=== PATIENT | female | born 1970 | race Hispanic/Latino ===

== ENCOUNTER 2017-04-26 15:22 | Emergency (ER) | payer OTHER ==
[2017-04-26 15:38] VITALS: BP 119/68; PULSE 80; RESP 16; TEMP 98.6; O2SAT 98
[2017-04-26 15:39] VITALS: BMI 24.7
== END 2017-04-26 16:51 | disposition left against medical advice (07) ==
LOC: H.ER 15:22
DX: Z02.89 Encounter for other administrative examinations (principal)

== ENCOUNTER 2017-05-21 08:19 | Emergency (ER) | payer OTHER ==
[2017-05-21 08:19] VITALS: BMI 24.7
[2017-05-21 08:39] VITALS: BP 122/78; PULSE 87; RESP 18; TEMP 98.9; O2SAT 98
[2017-05-21 10:34] LABS: BASO # 0.1 K/uL (0.0-0.2); EOS # 0.2 K/uL (0.0-0.7); EOS % 1.5 % (0.0-4.0); HEMOGLOBIN 15.6 g/dL (12.0-16.0); LYMPH # 3.4 K/uL (1.0-4.3); LYMPH % 26.7 % (20.0-40.0); MEAN CELL VOLUME 90.4 fl (81.0-99.0); MEAN CORPUSCULAR HEMOGLOBIN 30.8 pg (27.0-31.0); MEAN CORPUSCULAR HGB CONC 34.1 g/dL (33.0-37.0); MEAN PLATELET VOLUME 7.9 fl (7.2-11.7); MONO # 0.6 K/uL (0.0-0.8); MONO % 4.8 % (0.0-10.0); NEUT # 8.5 K/uL (1.8-7.0); RBC 5.08 Mil/uL (3.80-5.20); RED CELL DISTRIBUTION WIDTH 13.8 % (11.5-14.5); WHITE BLOOD COUNT 12.8 K/uL (4.8-10.8)
[2017-05-21 10:45] LABS: BLOOD UREA NITROGEN 11 mg/dl (7-17); CALCIUM 9.5 mg/dL (8.4-10.2); GFR AFRICAN-AMERICAN > 60; GFR NON-AFRICAN AMERICAN > 60
--- NOTE | 2017-05-21 10:50 | RAD ---
HISTORY: chest pain COMPARISON: Comparison made with prior chest radiograph 12/29/2016 TECHNIQUE: Chest PA and lateral FINDINGS: LUNGS: No focal consolidation. Scattered peribronchial cuffing changes with slight increased/ coarse interstitial markings; rule out sequela of reactive/inflammatory airway disease. PLEURA: No significant pleural effusion identified. No pneumothorax apparent. CARDIOVASCULAR: Normal. OSSEOUS STRUCTURES: No significant abnormalities. VISUALIZED UPPER ABDOMEN: Normal. OTHER FINDINGS: None. IMPRESSION: No focal consolidation. Scattered peribronchial cuffing changes with slight increased/ coarse interstitial markings; rule out sequela of reactive/inflammatory airway disease.
--- NOTE | 2017-05-21 10:52 | CARD ---
APPROVED REPORT EKG Measurement Heart [id number] ID [id number] <Conclusion> Sinus rhythm with sinus arrhythmia with short ID Nonspecific ST abnormality Abnormal ECG
--- NOTE | 2017-05-21 10:52 | ED PDOC ---
HPI: General Adult Time Seen by Provider: 05/21/17 08:29 Chief Complaint (Nursing): Trauma Chief Complaint (Provider): Left Sided Chest Pain and Left Knee Pain History Per: Patient History/Exam Limitations: no limitations Onset/Duration Of Symptoms: Hrs Have you had recent travel within the past 21 days to any of the following countries: [place], [place], [place] or [place]?: No Additional Complaint(s): Nikki Cox, a 46 year old female, presents to the ED complaining of left sided chest pain and left knee pain which started this morning. The patient states that she tripped over a piece of furniture but denies having pain after the fall. She reports that she cannot remember everything that happened after the fall but said she doesn't think she has a head injury, but she does know that she fell on her left side.The patient states that the pain is constant, radiates up and down her left side and gets worse with walking. Denies headache , vomiting and syncope. Past Medical History Reviewed: Historical Data, Nursing Documentation, Vital Signs Vital Signs: Last Vital Signs Temp 98.9 F 05/21/17 08:39 Pulse 87 05/21/17 08:39 Resp 18 05/21/17 08:39 BP 122/78 05/21/17 08:39 Pulse Ox 98 05/21/17 11:10 - Medical History PMH: Anxiety, COPD, HIV, Rheumatoid Arthritis Denies: Chronic Kidney Disease - Surgical History Surgical History: Other surgeries: Skin graph surgery - Family History Family History: States: Unknown Family Hx - Home Medications Home Medications: Ambulatory Orders Medication Instructions Recorded Albuterol HFA [Ventolin HFA 90 2 puff IH [id number] PRN 03/11/15 mcg/actuation (8 g)] Albuterol HFA [Ventolin HFA 90 2 puff IH [id number] PRN #30 puff 03/11/15 mcg/actuation (8 g)] Azithromycin [Zithromax Z-Marquez] 250 mg PO DAILY #1 tab 03/11/15 Budesonide/Formoterol Fumarate 1 dose INH PRN PRN 03/11/15 [Symbicort] Emtricita/rilpivir/tenofovir 1 tab PO DAILY 03/11/15 [Complera 200 mg-25 mg-300 mg] Levalbuterol Hydrochloride 1 dose XX PRN PRN 03/11/15 [Xopenex] Methylprednisolone [Medrol Dose 4 mg PO DAILY #21 mg 03/11/15 Pack (21 tabs)] Prednisone 3 mg PO DAILY 03/11/15 Clindamycin [Cleocin] 300 mg PO TID #30 cap 10/26/15 Oxycodone HCl/Acetaminophen 1 tab PO Q6 PRN #12 tab 10/26/15 [Percocet 325 mg-5 mg] Acetaminophen with Codeine 1 tab PO Q4 PRN #15 tab 01/26/16 [Acetaminophen and Codeine Phosphate 300 mg-30] Albuterol HFA [Ventolin HFA 90 1 - 2 puff IH Q4 PRN #1 inhaler 01/26/16 mcg/actuation (8 g)] Azithromycin [Zithromax] 250 mg PO DAILY #6 tab 01/26/16 Prednisone 50 mg PO DAILY #4 tab 01/26/16 Emtricita/Rilpivirine/Tenof Df 1 each PO DAILY 05/05/16 [Complera Tablet] Prednisone 50 mg PO DAILY #5 tablet 09/05/16 Ibuprofen [Motrin] 600 mg PO TID 7 Days 12/29/16 Ibuprofen [Motrin] 600 mg PO TID 7 Days 12/29/16 - Allergies Allergies/Adverse Reactions: Allergies Allergy/AdvReac Type Severity Reaction Status Date / Time FISH Allergy SWELLING Verified 05/21/17 08:27 lemon Allergy RASH Verified 05/21/17 08:27 onion Allergy SWELLING Verified 05/21/17 08:27 Review of Systems ROS Statement: Except As Marked, All Systems Reviewed And Found Negative Cardiovascular: Positive for: Chest Pain (Left sided chest pain) Gastrointestinal: Negative for: Vomiting Musculoskeletal: Positive for: Other (Left hip pain) Neurological: Positive for: Other (Denies syncope). Negative for: Headache Physical Exam - Reviewed Nursing Documentation Reviewed: Yes Vital Signs Reviewed: Yes - Physical Exam Appears: Positive for: Non-toxic, No Acute Distress Head Exam: Positive for: ATRAUMATIC, NORMAL INSPECTION, NORMOCEPHALIC Skin: Positive for: Normal Color, Warm, Dry Eye Exam: Positive for: Normal appearance, EOMI, PERRL ENT: Positive for: Normal ENT Inspection Neck: Positive for: Normal, Painless ROM, Supple Cardiovascular/Chest: Positive for: Regular Rate, Rhythm, Chest Non Tender. Negative for: Tachycardia Respiratory: Positive for: Normal Breath Sounds. Negative for: Wheezing, Respiratory Distress Gastrointestinal/Abdominal: Positive for: Normal Exam, Bowel Sounds, Soft. Negative for: Tenderness, Guarding, Rebound Back: Positive for: Normal Inspection Extremity: Positive for: Normal ROM. Negative for: Tenderness, Pedal Edema, Deformity, Swelling Neurologic/Psych: Positive for: Alert, Oriented - Laboratory Results Result Diagrams: 05/21/17 10:25 05/21/17 10:25 - ECG O2 Sat by Pulse Oximetry: 98 (RA) Pulse Ox Interpretation: Normal Medical Decision Making Medical Decision Makin Initial Impression: 46 year old female presenting with Fall and multiple Trauma Differential: Head Injury, Blunt Trauma- rule out fracture, Knee Injury-rule out fracture Initial Plan: * CT Head w/o Contrast * EKG * Basic Metabolic Panel * Troponin * EKG * CBC * CXR * Flexeril 10mg PO * Toradol 30mg IM * Reevaluation FINDINGS: HEMORRHAGE: No intracranial hemorrhage. BRAIN: No mass effect or edema. No atrophy or chronic microvascular ischemic changes. VENTRICLES: Unremarkable. No hydrocephalus. CALVARIUM: Unremarkable. No acute calvarial fractures. Note is made of a small indentation in the left frontal scalp of possibly representing old injury with scar PARANASAL SINUSES: Mild mucosal thickening seen within the left maxillary antrum is well as several ethmoid air cells. Two MASTOID AIR CELLS: Unremarkable as visualized. No inflammatory changes. OTHER FINDINGS: None. IMPRESSION: No acute intracranial hemorrhage. Scribe Attestation Documented by Beulah Marroquin acting as a scribe for Tram Garcia MD. Provider Attestation: All medical record entries made by the Scribe were at my direction and personally dictated by me. I have reviewed the chart and agree that the record accurately reflects my personal performance of the history, physical exam, medical decision making, and the department course for this patient. I have also personally directed, reviewed, and agree with the discharge instructions and disposition. Disposition - Clinical Impression Clinical Impression: Strain of knee and leg, left, Head injury, Chest trauma - Patient ED Disposition Is Patient to be Admitted: No Doctor Will See Patient In The: Office Counseled Patient/Family Regarding: Studies Performed, Diagnosis, Need For Followup - Disposition Referrals: [facility] [Outside] Disposition Time: 12:25 Condition: GOOD Additional Instructions: Take medications for pain. Follow up with your PCP in 2-3 days. Instructions: Blunt Chest Trauma (ED), Knee Sprain (ED)
--- NOTE | 2017-05-21 12:23 | CT ---
PROCEDURE: CT HEAD WITHOUT CONTRAST. HISTORY: head injury COMPARISON: None available. TECHNIQUE: Axial computed tomography images were obtained through the head/brain without intravenous contrast. Radiation dose: 816.23 Total exam DLP = 816.23 mGy-cm. This CT exam was performed using one or more of the following dose reduction techniques: Automated exposure control, adjustment of the mA and/or kV according to patient size, and/or use of iterative reconstruction technique. FINDINGS: HEMORRHAGE: No intracranial hemorrhage. BRAIN: No mass effect or edema. No atrophy or chronic microvascular ischemic changes. VENTRICLES: Unremarkable. No hydrocephalus. CALVARIUM: Unremarkable. No acute calvarial fractures. Note is made of a small indentation in the left frontal scalp of possibly representing old injury with scar PARANASAL SINUSES: Mild mucosal thickening seen within the left maxillary antrum is well as several ethmoid air cells. Two MASTOID AIR CELLS: Unremarkable as visualized. No inflammatory changes. OTHER FINDINGS: None. IMPRESSION: No acute intracranial hemorrhage.
--- NOTE | 2017-05-21 12:28 | RAD ---
PROCEDURE: Left Knee Radiographs. HISTORY: Pain. COMPARISON: None. FINDINGS: BONES: Normal. No fracture. JOINTS: Normal. No osteoarthritis. JOINT EFFUSION: Suspect trace suprapatellar joint effusion OTHER FINDINGS: None. IMPRESSION: No acute fracture seen. Suspect trace suprapatellar joint effusion
== END 2017-05-21 12:36 | disposition home or self-care (01) ==
LOC: H.ER 08:19
DX: M25.562 Pain in left knee (principal); S09.90XA Unspecified injury of head, initial encounter; S29.9XXA Unspecified injury of thorax, initial encounter; W08.XXXA Fall from other furniture, initial encounter; Y93.9 Activity, unspecified

== ENCOUNTER 2018-03-02 14:51 | Emergency (ER) | payer OTHER ==
[2018-03-02 14:51] VITALS: BMI 24.7
[2018-03-02 15:14] VITALS: BP 110/79; RESP 16; TEMP 99.2; O2SAT 97
[2018-03-02] MEDS ORDERED: Lidocaine 5% Patch TD STA (15:27)
[2018-03-02] MEDS ORDERED: Lidocaine 5% Patch TD ONE (15:39)
--- NOTE | 2018-03-02 15:50 | ED PDOC ---
HPI: Back Time Seen by Provider: 03/02/18 15:16 Chief Complaint (Nursing): Back Pain Chief Complaint (Provider): Back Pain History Per: Patient History/Exam Limitations: no limitations Onset/Duration Of Symptoms: Persistent (x3 months) Current Symptoms Are (Timing): Constant Additional Complaint(s): 47 year old female with medical history of herniated discs (whole spine including neck) and HIV, presents to the emergency department with a complaint of constant left-sided upper back pain radiating to left shoulder ongoing for 3 months. Patient states pain is worse with movement and is alleviated with massage. She denies any chest pain, shortness of breath, hemoptysis, back trauma , numbness, tingling, abdominal pain, diarrhea or constipation. Of note, patient has been experiencing unintentional weight loss recently, noting current weight this morning at 142lbs, when she normally ranges between 155- 158lbs. She admits to having large amounts of stress relating to having to care for her sister's children. Denies SI/HI, hallucinations. Patient reports medication compliance and last CD4 count was within normal limits 4 months ago. PMD: Erik Patel MD Past Medical History Reviewed: Historical Data, Nursing Documentation, Vital Signs Vital Signs: Last Vital Signs Temp 99.2 F 03/02/18 15:10 Pulse 95 H 03/02/18 15:10 Resp 16 03/02/18 15:10 BP 110/79 03/02/18 15:10 Pulse Ox 97 03/02/18 15:10 - Medical History PMH: Anxiety, COPD, HIV, Rheumatoid Arthritis Denies: Chronic Kidney Disease - Surgical History Surgical History: Denies: No Surg Hx - Family History Family History: States: No Known Family Hx - Living Arrangements Living Arrangements: With Family - Social History Current smoker - smoking cessation education provided: Yes SMOKER/PACKS PER DAY:: 1 (since age 15) Alcohol: None Drugs: Denies - Home Medications Home Medications: Ambulatory Orders Medication Instructions Recorded Albuterol HFA [Ventolin HFA 90 2 puff IH [id number] PRN 03/11/15 mcg/actuation (8 g)] Albuterol HFA [Ventolin HFA 90 2 puff IH [id number] PRN #30 puff 03/11/15 mcg/actuation (8 g)] Azithromycin [Zithromax Z-Marquez] 250 mg PO DAILY #1 tab 03/11/15 Budesonide/Formoterol Fumarate 1 dose INH PRN PRN 03/11/15 [Symbicort] Emtricita/rilpivir/tenofovir 1 tab PO DAILY 03/11/15 [Complera 200 mg-25 mg-300 mg] Levalbuterol Hydrochloride 1 dose XX PRN PRN 03/11/15 [Xopenex] Methylprednisolone [Medrol Dose 4 mg PO DAILY #21 mg 03/11/15 Pack (21 tabs)] Prednisone 3 mg PO DAILY 03/11/15 Clindamycin [Cleocin] 300 mg PO TID #30 cap 10/26/15 Oxycodone HCl/Acetaminophen 1 tab PO Q6 PRN #12 tab 10/26/15 [Percocet 325 mg-5 mg] Acetaminophen with Codeine 1 tab PO Q4 PRN #15 tab 01/26/16 [Acetaminophen and Codeine Phosphate 300 mg-30] Albuterol HFA [Ventolin HFA 90 1 - 2 puff IH Q4 PRN #1 inhaler 01/26/16 mcg/actuation (8 g)] Azithromycin [Zithromax] 250 mg PO DAILY #6 tab 01/26/16 Prednisone 50 mg PO DAILY #4 tab 01/26/16 Emtricita/Rilpivirine/Tenof Df 1 each PO DAILY 05/05/16 [Complera Tablet] Prednisone 50 mg PO DAILY #5 tablet 09/05/16 Ibuprofen [Motrin] 600 mg PO TID 7 Days tab 12/29/16 Ibuprofen [Motrin] 600 mg PO TID 7 Days tab 12/29/16 Cyclobenzaprine [Flexeril] 5 mg PO TID #15 tab 05/21/17 Naproxen 500 mg PO BID #20 tab 05/21/17 Cyclobenzaprine [Cyclobenzaprine 10 mg PO Q8 PRN #10 tab 03/02/18 HCl] Meloxicam [Mobic] 7.5 mg PO DAILY PRN #30 tab 03/02/18 - Allergies Allergies/Adverse Reactions: Allergies Allergy/AdvReac Type Severity Reaction Status Date / Time FISH Allergy SWELLING Verified 03/02/18 15:10 lemon Allergy RASH Verified 03/02/18 15:10 onion Allergy SWELLING Verified 03/02/18 15:10 Review of Systems ROS Statement: Except As Marked, All Systems Reviewed And Found Negative Constitutional: Positive for: Weight loss (unintentional; 10+ pounds) Cardiovascular: Negative for: Chest Pain Respiratory: Negative for: Shortness of Breath, Hemoptysis Gastrointestinal: Negative for: Abdominal Pain, Diarrhea, Constipation Musculoskeletal: Positive for: Shoulder Pain (left-sided), Back Pain (upper left ). Negative for: Other (trauma) Neurological: Negative for: Numbness (or tingling) Physical Exam - Reviewed Nursing Documentation Reviewed: Yes Vital Signs Reviewed: Yes - Physical Exam Appears: Positive for: Well, Non-toxic, No Acute Distress Skin: Positive for: Normal Color. Negative for: Rash Cardiovascular/Chest: Positive for: Regular Rate, Rhythm, Chest Non Tender Respiratory: Positive for: Normal Breath Sounds. Negative for: Decreased Breath Sounds, Wheezing, Respiratory Distress Gastrointestinal/Abdominal: Positive for: Normal Exam, Soft. Negative for: Tenderness Back: Positive for: Normal Inspection, Muscle Spasm (left parascapular). Negative for: L CVA Tenderness, R CVA Tenderness, Vertebral Tenderness Neurologic/Psych: Positive for: Alert (x3), Oriented. Negative for: Motor/ Sensory Deficits - ECG ECG: Positive for: Interpreted By Me ECG Rhythm: Positive for: Sinus Rhythm. Negative for: ST/T Changes Rate: 71 O2 Sat by Pulse Oximetry: 97 (RA) Pulse Ox Interpretation: Normal - Radiology X-Ray: Interpreted by Me (CXR) X-Ray Interpretation: No Acute Disease Medical Decision Making Medical Decision Making: Initial Impression: Back pain Initial Plan: * EKG * CXR * Flexeril 10mg PO * Lidoderm * Toradol 30mg IM Time: 1559 --CXR FINDINGS: LUNGS: No active pulmonary disease. PLEURA: No significant pleural effusion identified. No pneumothorax apparent. CARDIOVASCULAR: Normal. OSSEOUS STRUCTURES: No significant abnormalities. VISUALIZED UPPER ABDOMEN: Normal. OTHER FINDINGS: None. IMPRESSION: No active disease. Time: 1613 --Upon provider reevaluation, patient is medically stable and requires no further treatment in the ED at this time. Pain has improved. Patient will be discharged home with Rx for Cyclobenzaprine HCL 10mg and Mobic 7.5mg. Counseling was provided and all questions were answered regarding diagnosis and need for follow up with [facility] or [facility] (pt.'s Infectious Disease doctor) for further evaluation of weight loss and back pain. Informed that not all masses can be seen via CXR and she may need further testing. There is agreement to discharge plan. Return if symptoms persist or worsen. Clinical Impression: Back pain Scribe Attestation: Documented by Beverley Boland, acting as a scribe for Brooks Tobias PA-C. Provider Scribe Attestation: All medical record entries made by the Scribe were at my direction and personally dictated by me. I have reviewed the chart and agree that the record accurately reflects my personal performance of the history, physical exam, medical decision making, and the department course for this patient. I have also personally directed, reviewed, and agree with the discharge instructions and disposition. Disposition - Clinical Impression Clinical Impression: Back pain, Needs smoking cessation education - Patient ED Disposition Is Patient to be Admitted: No Counseled Patient/Family Regarding: Studies Performed, Diagnosis, Need For Followup, Rx Given - Disposition Referrals: [facility] [Outside] [facility] [Outside] Disposition: Routine/Home Disposition Time: 16:13 Condition: STABLE Additional Instructions: Follow up with [facility] for further evaluation. Return to ED immediately if symptoms worsen. Prescriptions: Cyclobenzaprine [Cyclobenzaprine HCl] 10 mg PO Q8 PRN #10 tab PRN Reason: Muscle Spasm Meloxicam [Mobic] 7.5 mg PO DAILY PRN #30 tab PRN Reason: Pain, Mild (1-3) Instructions: Upper Back Pain (DC), Quitting Smokeless Tobacco, Drugs to Help You Stop Using Tobacco Forms: [employer] ([place]ian) Print Language: LATVIAN
--- NOTE | 2018-03-02 16:09 | RAD ---
HISTORY: L sided upper back pain COMPARISON: Chest radiograph dated 05/21/2017. TECHNIQUE: Chest PA and lateral FINDINGS: LUNGS: No active pulmonary disease. PLEURA: No significant pleural effusion identified. No pneumothorax apparent. CARDIOVASCULAR: Normal. OSSEOUS STRUCTURES: No significant abnormalities. VISUALIZED UPPER ABDOMEN: Normal. OTHER FINDINGS: None. IMPRESSION: No active disease.
[2018-03-02 16:15] VITALS: PULSE 71
--- NOTE | 2018-03-03 11:39 | CARD ---
APPROVED REPORT EKG Measurement Heart [id number] <Conclusion> Normal sinus rhythm with sinus arrhythmia Nonspecific ST abnormality Abnormal ECG
== END 2018-03-02 16:31 | disposition home or self-care (01) ==
LOC: H.ER 14:51
DX: M54.9 Dorsalgia, unspecified (principal); F17.210 Nicotine dependence, cigarettes, uncomplicated; M06.9 Rheumatoid arthritis, unspecified; B97.35 Human immunodeficiency virus, type 2 [HIV 2] as the cause of diseases classified elsewhere; J44.9 Chronic obstructive pulmonary disease, unspecified
CPT/HCPCS: 71046; 81025; 93005; 96372; 99283; J1885

== ENCOUNTER 2018-04-10 08:39 | Emergency (ER) | payer OTHER ==
[2018-04-10 08:39] VITALS: BMI 24.7
[2018-04-10 09:06] VITALS: RESP 18; TEMP 98
[2018-04-10] MEDS ORDERED: Naproxen 500 MG TAB PO STA (10:18)
[2018-04-10] MEDS ORDERED: Naproxen 500 MG TAB PO ONE (10:29)
--- NOTE | 2018-04-10 10:37 | ED PDOC ---
HPI: General Adult Time Seen by Provider: 04/10/18 09:17 Chief Complaint (Nursing): Chest Pain Chief Complaint (Provider): Rib pain History Per: Patient History/Exam Limitations: no limitations Additional Complaint(s): Pt reports pain to L ribs X 2 days, worse with deep breath and cough. Denies fever, CP, SOB, trauma. Did not take anything for pain. Past Medical History Reviewed: Nursing Documentation, Vital Signs Vital Signs: Last Vital Signs Temp 98 F 04/10/18 14:07 Pulse 76 04/10/18 14:07 Resp 18 04/10/18 14:07 BP 132/70 04/10/18 14:07 Pulse Ox 99 04/10/18 14:07 - Medical History PMH: Anxiety, COPD, HIV, Rheumatoid Arthritis Denies: Chronic Kidney Disease - Surgical History Surgical History: - Family History Family History: States: Unknown Family Hx - Social History Current smoker - smoking cessation education provided: Yes Alcohol: None - Home Medications Home Medications: Ambulatory Orders Medication Instructions Recorded Albuterol HFA [Ventolin HFA 90 2 puff IH [id number] PRN 03/11/15 mcg/actuation (8 g)] Albuterol HFA [Ventolin HFA 90 2 puff IH [id number] PRN #30 puff 03/11/15 mcg/actuation (8 g)] Azithromycin [Zithromax Z-Marquez] 250 mg PO DAILY #1 tab 03/11/15 Budesonide/Formoterol Fumarate 1 dose INH PRN PRN 03/11/15 [Symbicort] Emtricita/rilpivir/tenofovir 1 tab PO DAILY 03/11/15 [Complera 200 mg-25 mg-300 mg] Levalbuterol Hydrochloride 1 dose XX PRN PRN 03/11/15 [Xopenex] Methylprednisolone [Medrol Dose 4 mg PO DAILY #21 mg 03/11/15 Pack (21 tabs)] Prednisone 3 mg PO DAILY 03/11/15 Clindamycin [Cleocin] 300 mg PO TID #30 cap 10/26/15 Oxycodone HCl/Acetaminophen 1 tab PO Q6 PRN #12 tab 10/26/15 [Percocet 325 mg-5 mg] Acetaminophen with Codeine 1 tab PO Q4 PRN #15 tab 03/15/16 [Acetaminophen and Codeine Phosphate 300 mg-30] Albuterol HFA [Ventolin HFA 90 1 - 2 puff IH Q4 PRN #1 inhaler 01/26/16 mcg/actuation (8 g)] Azithromycin [Zithromax] 250 mg PO DAILY #6 tab 01/26/16 Prednisone 50 mg PO DAILY #4 tab 01/26/16 Emtricita/Rilpivirine/Tenof Df 1 each PO DAILY 05/05/16 [Complera Tablet] Prednisone 50 mg PO DAILY #5 tablet 09/05/16 Ibuprofen [Motrin] 600 mg PO TID 7 Days tab 12/29/16 Ibuprofen [Motrin] 600 mg PO TID 7 Days tab 12/29/16 Cyclobenzaprine [Flexeril] 5 mg PO TID #15 tab 05/21/17 Naproxen 500 mg PO BID #20 tab 05/21/17 Cyclobenzaprine [Cyclobenzaprine 10 mg PO Q8 PRN #10 tab 03/02/18 HCl] Meloxicam [Mobic] 7.5 mg PO DAILY PRN #30 tab 03/02/18 Cyclobenzaprine [Cyclobenzaprine 10 mg PO TID PRN #15 tab 04/10/18 HCl] Naproxen [Naprosyn] 500 mg PO BID PRN #15 tablet 04/10/18 - Allergies Allergies/Adverse Reactions: Allergies Allergy/AdvReac Type Severity Reaction Status Date / Time FISH Allergy SWELLING Verified 04/10/18 09:04 lemon Allergy RASH Verified 04/10/18 09:04 onion Allergy SWELLING Verified 04/10/18 09:04 Review of Systems Constitutional: Negative for: Fever, Chills Cardiovascular: Positive for: Chest Pain (Chest wall pain). Negative for: Palpitations Respiratory: Positive for: Cough (Chronic). Negative for: Shortness of Breath, Sputum, Wheezing Gastrointestinal: Negative for: Nausea, Vomiting, Abdominal Pain, Diarrhea Musculoskeletal: Negative for: Neck Pain, Back Pain Skin: Negative for: Rash, Lesions Neurological: Negative for: Headache Physical Exam - Reviewed Nursing Documentation Reviewed: Yes Vital Signs Reviewed: Yes - Physical Exam Appears: Positive for: Well, No Acute Distress Head Exam: Positive for: ATRAUMATIC, NORMAL INSPECTION Skin: Positive for: Normal Color, Warm, Dry Eye Exam: Positive for: Normal appearance, EOMI, PERRL Cardiovascular/Chest: Positive for: Regular Rate, Rhythm. Negative for: Chest Non Tender (TTP L anterior lower ribs) Respiratory: Positive for: Normal Breath Sounds. Negative for: Decreased Breath Sounds, Accessory Muscle Use, Rales, Rhonchi, Wheezing Back: Positive for: Normal Inspection. Negative for: L CVA Tenderness, R CVA Tenderness Extremity: Positive for: Normal ROM Neurologic/Psych: Positive for: Alert, Oriented - Laboratory Results Result Diagrams: 04/10/18 11:10 04/10/18 11:10 - ECG O2 Sat by Pulse Oximetry: 98 Medical Decision Making Medical Decision Makin yo female with L rib pain. - labs - XR L ribs - Naprosyn Disposition - Clinical Impression Clinical Impression: Rib pain on left side - Disposition Disposition: Routine/Home Disposition Time: 13:44 Condition: IMPROVED Additional Instructions: FOLLOW-UP WITH PMD WITHIN 2 DAYS FOR REEVALUATION. Prescriptions: Cyclobenzaprine [Cyclobenzaprine HCl] 10 mg PO TID PRN #15 tab PRN Reason: Pain Naproxen [Naprosyn] 500 mg PO BID PRN #15 tablet PRN Reason: Pain, Moderate (4-7) Instructions: Muscle and Bone Pain (DC), Quitting Smoking Forms: [employer] (Thai)
[2018-04-10 11:22] LABS: BASO # 0.1 K/uL (0.0-0.2); BASO % 1.2 % (0.0-2.0); EOS # 0.2 K/uL (0.0-0.7); EOS % 2.3 % (0.0-4.0); LYMPH # 2.9 K/uL (1.0-4.3); LYMPH % 33.1 % (20.0-40.0); MEAN CELL VOLUME 90.6 fl (81.0-99.0); MEAN CORPUSCULAR HEMOGLOBIN 31.5 pg (27.0-31.0); MEAN CORPUSCULAR HGB CONC 34.8 g/dL (33.0-37.0); MEAN PLATELET VOLUME 7.9 fl (7.2-11.7); MONO # 0.5 K/uL (0.0-0.8); MONO % 5.8 % (0.0-10.0); NEUT % 57.6 % (50.0-75.0); NRBC % 0.1 % (0.0-0.0); RBC 4.77 Mil/uL (3.80-5.20); RED CELL DISTRIBUTION WIDTH 14.1 % (11.5-14.5); WHITE BLOOD COUNT 8.7 K/uL (4.8-10.8)
--- NOTE | 2018-04-10 11:31 | RAD ---
PROCEDURE: Radiographs of the Chest and Left Ribs. HISTORY: Left anterior lower rib pain COMPARISON: None available. TECHNIQUE: Frontal radiograph of the chest and multiple oblique radiographs of the left ribs were obtained. FINDINGS: LEFT RIBS: No acute rib fracture or focal lesion visualized. LUNGS: The lungs are hyperinflated and there is peribronchial thickening with chronic changes in both lungs. There is no focal consolidation. PLEURA: No pneumothorax or pleural fluid. CARDIOVASCULAR: Normal sized heart. No pulmonary vascular congestion. OTHER FINDINGS: None. IMPRESSION: No acute rib fracture. Clear lungs.
[2018-04-10 11:37] LABS: ALB/GLOB RATIO 1.3 (1.0-2.1); ALBUMIN 4.4 g/dL (3.5-5.0); ALT/SGPT 30 U/L (9-52); AST/SGOT 29 U/L (14-36); BLOOD UREA NITROGEN 11 mg/dl (7-17); CALCIUM 9.4 mg/dL (8.4-10.2); GFR AFRICAN-AMERICAN > 60; GFR NON-AFRICAN AMERICAN > 60; INR 0.9 (0.9-1.2); PARTIAL THROMBOPLASTIN TIME 29.3 Seconds (25.6-37.1); PROTHROMBIN TIME 10.4 Seconds (9.8-13.1)
[2018-04-10 14:07] VITALS: BP 132/70; PULSE 76
[2018-04-19 08:20] VITALS: O2SAT 98
== END 2018-04-10 14:00 | disposition home or self-care (01) ==
LOC: H.ER 08:39
DX: R07.81 Pleurodynia (principal); F17.200 Nicotine dependence, unspecified, uncomplicated; J44.9 Chronic obstructive pulmonary disease, unspecified
CPT/HCPCS: 71101; 80053; 81025; 85025; 85378; 85610; 85730; 96374; 99283; J2270

== ENCOUNTER 2018-10-16 00:03 | Emergency (ER) | payer OTHER ==
[2018-10-16 00:03] VITALS: BMI 24.7
[2018-10-16 00:20] VITALS: RESP 20; TEMP 98.7; O2SAT 99
[2018-10-16] MEDS ORDERED: Sodium Chloride 0.9% 1,000 ML IV STA (00:34)
[2018-10-16 00:53] LABS: BASO # 0.1 K/uL (0.0-0.2); BASO % 1.1 % (0.0-2.0); EOS # 0.3 K/uL (0.0-0.7); EOS % 3.7 % (0.0-4.0); HEMOGLOBIN 14.6 g/dL (12.0-16.0); LYMPH # 2.9 K/uL (1.0-4.3); LYMPH % 35.6 % (20.0-40.0); MEAN CORPUSCULAR HEMOGLOBIN 31.3 pg (27.0-31.0); MEAN CORPUSCULAR HGB CONC 34.4 g/dL (33.0-37.0); MEAN PLATELET VOLUME 7.6 fl (7.2-11.7); MONO # 0.5 K/uL (0.0-0.8); MONO % 5.9 % (0.0-10.0); NEUT # 4.4 K/uL (1.8-7.0); NEUT % 53.7 % (50.0-75.0); RBC 4.68 Mil/uL (3.80-5.20); RED CELL DISTRIBUTION WIDTH 14.1 % (11.5-14.5); WHITE BLOOD COUNT 8.3 K/uL (4.8-10.8)
--- NOTE | 2018-10-16 01:23 | ED PDOC ---
HPI: Abdomen Time Seen by Provider: 10/16/18 00:11 Chief Complaint (Nursing): Abdominal Pain Chief Complaint (Provider): Abdominal Pain History Per: Patient History/Exam Limitations: no limitations Onset/Duration Of Symptoms: Hrs (x1) Location Of Pain/Discomfort: Epigastric Quality Of Discomfort: Sharp Additional Complaint(s): 48 y/o female with history of HIV and basal cell carcinoma, presents to ED complaining of abdominal pain and vomiting, onset x1 hour ago. Patient reports the symptoms started after she ate fried chicken at a [employer] restaurant. Patient describes the pain as a sharp 10/10 pain starting in her epigastric area radiating to her back. Patient reports she was vomiting as well prior to arrival. Past Medical History Reviewed: Historical Data, Nursing Documentation, Vital Signs Vital Signs: Last Vital Signs Temp 98.7 F 10/16/18 00:19 Pulse 92 H 10/16/18 00:19 Resp 20 10/16/18 00:19 BP 119/80 10/16/18 00:19 Pulse Ox 99 10/16/18 00:19 - Medical History PMH: Anxiety, Asthma, COPD, HIV, Rheumatoid Arthritis Denies: Chronic Kidney Disease Other PMH: basal cell carcinoma - Surgical History Surgical History: Other surgeries: Basal Cell Carcinoma removal, ganglion cyst surgery - Family History Family History: States: Unknown Family Hx - Social History Current smoker - smoking cessation education provided: Yes - Home Medications Home Medications: Ambulatory Orders Medication Instructions Recorded Albuterol HFA [Ventolin HFA 90 2 puff IH [id number] PRN 03/11/15 mcg/actuation (8 g)] Albuterol HFA [Ventolin HFA 90 2 puff IH [id number] PRN #30 puff 03/11/15 mcg/actuation (8 g)] Azithromycin [Zithromax Z-Marquez] 250 mg PO DAILY #1 tab 03/11/15 Budesonide/Formoterol Fumarate 1 dose INH PRN PRN 03/11/15 [Symbicort] Emtricita/rilpivir/tenofovir 1 tab PO DAILY 03/11/15 [Complera 200 mg-25 mg-300 mg] Levalbuterol Hydrochloride 1 dose XX PRN PRN 03/11/15 [Xopenex] Methylprednisolone [Medrol Dose 4 mg PO DAILY #21 mg 03/11/15 Pack (21 tabs)] Prednisone 3 mg PO DAILY 03/11/15 Clindamycin [Cleocin] 300 mg PO TID #30 cap 10/26/15 Oxycodone HCl/Acetaminophen 1 tab PO Q6 PRN #12 tab 10/26/15 [Percocet 325 mg-5 mg] Acetaminophen with Codeine 1 tab PO Q4 PRN #15 tab 01/26/16 [Acetaminophen and Codeine Phosphate 300 mg-30] Albuterol HFA [Ventolin HFA 90 1 - 2 puff IH Q4 PRN #1 inhaler 01/26/16 mcg/actuation (8 g)] Azithromycin [Zithromax] 250 mg PO DAILY #6 tab 01/26/16 Prednisone 50 mg PO DAILY #4 tab 01/26/16 Emtricita/Rilpivirine/Tenof Df 1 each PO DAILY 05/05/16 [Complera Tablet] Prednisone 50 mg PO DAILY #5 tablet 09/05/16 Ibuprofen [Motrin] 600 mg PO TID 7 Days tab 12/29/16 Ibuprofen [Motrin] 600 mg PO TID 7 Days tab 12/29/16 Cyclobenzaprine [Flexeril] 5 mg PO TID #15 tab 05/21/17 Naproxen 500 mg PO BID #20 tab 05/21/17 Cyclobenzaprine [Cyclobenzaprine 10 mg PO Q8 PRN #10 tab 03/02/18 HCl] Meloxicam [Mobic] 7.5 mg PO DAILY PRN #30 tab 03/02/18 Cyclobenzaprine [Cyclobenzaprine 10 mg PO TID PRN #15 tab 04/10/18 HCl] Naproxen [Naprosyn] 500 mg PO BID PRN #15 tablet 04/10/18 Esomeprazole Magnesium [Nexium] 20 mg PO QAM #14 ecc 10/16/18 Ondansetron ODT [Zofran ODT] 4 mg PO Q6 PRN #8 odt 10/16/18 - Allergies Allergies/Adverse Reactions: Allergies Allergy/AdvReac Type Severity Reaction Status Date / Time FISH Allergy SWELLING Verified 10/16/18 00:20 lemon Allergy RASH Verified 10/16/18 00:20 onion Allergy SWELLING Verified 10/16/18 00:20 Review of Systems ROS Statement: Except As Marked, All Systems Reviewed And Found Negative Gastrointestinal: Positive for: Vomiting, Abdominal Pain Physical Exam - Reviewed Nursing Documentation Reviewed: Yes Vital Signs Reviewed: Yes - Physical Exam Appears: Positive for: Uncomfortable Head Exam: Positive for: ATRAUMATIC, NORMOCEPHALIC Skin: Positive for: Normal Color, Warm, Dry Eye Exam: Positive for: EOMI, Normal appearance, PERRL Neck: Positive for: Normal, Painless ROM, Supple Cardiovascular/Chest: Positive for: Regular Rate, Rhythm. Negative for: Murmur Respiratory: Positive for: Normal Breath Sounds. Negative for: Respiratory Distress Gastrointestinal/Abdominal: Positive for: Tenderness (epigastric and RUQ) Extremity: Positive for: Normal ROM. Negative for: Pedal Edema, Deformity Neurologic/Psych: Positive for: Alert, Oriented. Negative for: Motor/Sensory Deficits - Laboratory Results Result Diagrams: 10/16/18 00:40 10/16/18 00:40 - ECG O2 Sat by Pulse Oximetry: 99 (RA) Pulse Ox Interpretation: Normal Medical Decision Making Medical Decision Making: Time: 00:33 Initial Impression: 48 y/o female with acute epigastric pain Initial Plan: * CMP * Lipase * Urine preg * ED Urine * CBC w/ diff * IV Fluids * Pepcid * Toradol 30 mg * Zofran * UA * US Abdomen 02:34 US Abdomen Findings: Liver is normal in size measuring 15.8 cm. Normal gallbladder with that were thickness measuring 1.9 mm. Negative sonographic Jeffery. Nondilated common bile that measuring 4.1 mm. Normal pancreas. Nonaneurysmal aorta. Unremarkable right kidney measuring 11.5x4.2x5.1 cm. Impression: Unremarkable exam. 02:44 US report reviewed. Patient reporting improvement in symptoms she is stable for discharge. Diagnosis is acute gastritis. Scribe Attestation: Documented by Chucky Walter acting as a scribe for Enrique Diaz MD. Provider Scribe Attestation: All medical record entries made by the Scribe were at my direction and personal ly dictated by me. I have reviewed the chart and agree that the record accurately reflects my personal performance of the history, physical exam, medical decision making, and the department course for this patient. I have also personally directed, reviewed, and agree with the discharge instructions and disposition. Disposition - Clinical Impression Clinical Impression: Gastritis - Patient ED Disposition Is Patient to be Admitted: No - Disposition Disposition: Routine/Home Disposition Time: 02:44 Condition: STABLE Additional Instructions: ALFREDO CHUA, thank you for letting us take care of you today. Your provider was Enrique Diaz MD and you were treated for ABD PAIN. The emergency medical care you received today was directed at your acute symptoms. If you were prescribed any medication, please fill it and take as directed. It may take several days for your symptoms to resolve. Return to the Emergency Department if your symptoms worsen, do not improve, or if you have any other problems. Please contact your doctor or call one of the physicians/clinics you have been referred to that are listed on the Patient Visit Information form that is in cluded in your discharge packet. Bring any paperwork you were given at discharge with you along with any medications you are taking to your follow up visit. Our treatment cannot replace ongoing medical care by a primary care provider outside of the emergency department. Thank you for allowing the [facility] team to be part of your care today. If you had an X-Ray or CT scan: A Radiologist will review the ED reading if any change in treatment is needed we will contact you. If you had a blood, urine, or wound culture: It will take several days for the results, if any change in treatment is needed we will contact you. If you had an STI test: It will take 48 hours for the results. Please call after 1 week if you have not heard back. Prescriptions: Esomeprazole Magnesium [Nexium] 20 mg PO QAM #14 ecc Ondansetron ODT [Zofran ODT] 4 mg PO Q6 PRN #8 odt PRN Reason: Nausea/Vomiting Instructions: Gastritis Forms: Wayin (Honduran)
[2018-10-16 01:24] LABS: BLOOD UREA NITROGEN 19 mg/dl (7-17); GFR NON-AFRICAN AMERICAN > 60
[2018-10-16 01:25] LABS: ALB/GLOB RATIO 1.3 (1.0-2.1); ALBUMIN 4.6 g/dL (3.5-5.0); ALT/SGPT 31 U/L (9-52); AST/SGOT 34 U/L (14-36); CALCIUM 9.6 mg/dL (8.4-10.2)
[2018-10-16 01:47] LABS: LIPASE 83 U/L (23-300)
[2018-10-16 05:59] VITALS: BP 128/72; PULSE 86
--- NOTE | 2018-10-16 10:46 | US ---
Date of service: 10/16/2018 HISTORY: RUQ pain COMPARISON: None. TECHNIQUE: Sonographic evaluation of the right upper quadrant of the abdomen. FINDINGS: LIVER: Measures 15.8 cm in length. Normal echogenicity of the liver parenchyma. No mass. No intrahepatic bile duct dilatation. GALLBLADDER: Unremarkable. No gallstones. COMMON BILE DUCT: Measures 4 mm. No stones. No dilatation. PANCREAS: Unremarkable as visualized. No mass. No ductal dilatation. RIGHT KIDNEY: Measures 11.5 cm in length. Normal echogenicity. No calculus, mass, or hydronephrosis. AORTA: No aneurysmal dilatation. IVC: Unremarkable. OTHER FINDINGS: None . IMPRESSION: Unremarkable examination. No evidence of cholelithiasis or cholecystitis.
== END 2018-10-16 02:50 | disposition home or self-care (01) ==
LOC: H.ER 00:03
DX: K29.00 Acute gastritis without bleeding (principal); F17.200 Nicotine dependence, unspecified, uncomplicated; J44.9 Chronic obstructive pulmonary disease, unspecified; Z85.828 Personal history of other malignant neoplasm of skin; Z79.899 Other long term (current) drug therapy; M06.9 Rheumatoid arthritis, unspecified
CPT/HCPCS: 76705; 80053; 83690; 85025; 96374; 96375; 99283; J1885; J2405; J7030

== ENCOUNTER 2018-11-16 15:19 | Emergency (ER) | payer OTHER ==
[2018-11-16 15:19] VITALS: BMI 24.7
[2018-11-16 15:41] VITALS: RESP 28; TEMP 98.2
[2018-11-16] MEDS ORDERED: Albuterol-Ipratrop 3 mg / 0.5 (3 ml) UD INH STA (16:09)
--- NOTE | 2018-11-16 16:47 | ED PDOC ---
HPI: CCC, URI, Sore Throat Time Seen by Provider: 11/16/18 15:38 Chief Complaint (Nursing): Cough, Cold, Congestion Chief Complaint (Provider): Cough History Per: Patient History/Exam Limitations: no limitations Onset/Duration Of Symptoms: Days (x 3 weeks) Current Symptoms Are (Timing): Still Present Associated Symptoms: Cough Additional Complaint(s): 48 year old female with a history of HIV, migraines, asthma and COPD presents to the ED for evaluation of a intermittent cough productive of white thick sputum. Patient reports cough has been intermittent since the 03 of November and is associated with chest tightness consistent with asthma and COPD. In the last four days, she has also experienced blurry vision. Patient states that she can see everything, but it is just blurry. She has used glasses in the past, but not for years. Patient also states that she has chronic diarrhea which she believes in linked to her HIV medications. Patient has a sick contact in daughter and feels as though they are passing respiratory infections back and forth. She also reports her viral load is undetectable. Denies hemoptysis, sore throat, runny nose, fever and vomiting. PMD: [facility] Past Medical History Reviewed: Historical Data, Nursing Documentation, Vital Signs Vital Signs: Last Vital Signs Temp 98.2 F 11/16/18 15:40 Pulse 98 H 11/16/18 15:40 Resp 28 H 11/16/18 15:40 BP 131/74 11/16/18 15:40 Pulse Ox 95 11/16/18 15:40 - Medical History PMH: Anxiety, Arthritis (treats with pain management), Asthma, COPD, HIV, Malign chayito (basal cell carcinoma), Migraine, Rheumatoid Arthritis Denies: Chronic Kidney Disease - Surgical History Surgical History: Other surgeries: skin resection and left wrist cystectomy - Family History Family History: States: Unknown Family Hx - Social History Current smoker - smoking cessation education provided: Yes Alcohol: None Drugs: Denies - Home Medications Home Medications: Ambulatory Orders Medication Instructions Recorded Azithromycin [Zithromax Z-Marquez] 250 mg PO DAILY #1 tab 03/11/15 Budesonide/Formoterol Fumarate 1 dose INH PRN PRN 03/11/15 [Symbicort] Emtricita/rilpivir/tenofovir 1 tab PO DAILY 03/11/15 [Complera 200 mg-25 mg-300 mg] Levalbuterol Hydrochloride 1 dose XX PRN PRN 03/11/15 [Xopenex] Methylprednisolone [Medrol Dose 4 mg PO DAILY #21 mg 03/11/15 Pack (21 tabs)] RX: Albuterol HFA [Ventolin HFA 90 2 puff IH [id number] PRN 03/11/15 mcg/actuation (8 g)] RX: Albuterol HFA [Ventolin HFA 90 2 puff IH [id number] PRN #30 puff 03/11/15 mcg/actuation (8 g)] RX: Prednisone 3 mg PO DAILY 03/11/15 Oxycodone HCl/Acetaminophen 1 tab PO Q6 PRN #12 tab 10/26/15 [Percocet 325 mg-5 mg] RX: Clindamycin [Cleocin] 300 mg PO TID #30 cap 10/26/15 Acetaminophen with Codeine 1 tab PO Q4 PRN #15 tab 01/26/16 [Acetaminophen and Codeine Phosphate 300 mg-30] RX: Albuterol HFA [Ventolin HFA 90 1 - 2 puff IH Q4 PRN #1 inhaler 01/26/16 mcg/actuation (8 g)] RX: Azithromycin [Zithromax] 250 mg PO DAILY #6 tab 01/26/16 RX: Prednisone 50 mg PO DAILY #4 tab 01/26/16 Emtricita/Rilpivirine/Tenof Df 1 each PO DAILY 05/05/16 [Complera Tablet] RX: Prednisone 50 mg PO DAILY #5 tablet 09/05/16 Ibuprofen [Motrin] 600 mg PO TID 7 Days tab 12/29/16 Ibuprofen [Motrin] 600 mg PO TID 7 Days tab 12/29/16 Cyclobenzaprine [Flexeril] 5 mg PO TID #15 tab 05/21/17 RX: Naproxen 500 mg PO BID #20 tab 05/21/17 Cyclobenzaprine [Cyclobenzaprine 10 mg PO Q8 PRN #10 tab 03/02/18 HCl] Meloxicam [Mobic] 7.5 mg PO DAILY PRN #30 tab 03/02/18 Cyclobenzaprine [Cyclobenzaprine 10 mg PO TID PRN #15 tab 04/10/18 HCl] Naproxen [Naprosyn] 500 mg PO BID PRN #15 tablet 04/10/18 Esomeprazole Magnesium [Nexium] 20 mg PO QAM #14 ecc 10/16/18 Ondansetron ODT [Zofran ODT] 4 mg PO Q6 PRN #8 odt 10/16/18 Albuterol 0.083% [Albuterol 3 ml IH Q4 PRN #50 neb 11/16/18 Sulfate 3 Ml] Promethazine HCl/Codeine 10 ml PO Q6 PRN #120 ml 11/16/18 [Prometh-Codein 6.25-10 mg/5 ml] RX: Azithromycin [Zithromax] 250 mg PO DAILY #6 dose 11/16/18 RX: Prednisone 50 mg PO DAILY #4 tablet 11/16/18 - Allergies Allergies/Adverse Reactions: Allergies Allergy/AdvReac Type Severity Reaction Status Date / Time FISH Allergy SWELLING Verified 11/16/18 15:26 lemon Allergy RASH Verified 11/16/18 15:26 onion Allergy SWELLING Verified 11/16/18 15:26 Review of Systems ROS Statement: Except As Marked, All Systems Reviewed And Found Negative Constitutional: Negative for: Fever Eyes: Positive for: Vision Change (blurry vision) ENT: Negative for: Nose Discharge, Nose Congestion, Throat Pain Cardiovascular: Positive for: Chest Pain (tightness that is consistent with asthma and COPD ) Respiratory: Positive for: Cough, Sputum (white thick sputum). Negative for: Hemoptysis Gastrointestinal: Positive for: Diarrhea (chronic). Negative for: Vomiting Physical Exam - Reviewed Nursing Documentation Reviewed: Yes Vital Signs Reviewed: Yes - Physical Exam Appears: Positive for: Non-toxic Head Exam: Positive for: ATRAUMATIC, NORMAL INSPECTION, NORMOCEPHALIC Skin: Positive for: Normal Color, Warm, Dry Eye Exam: Positive for: Normal appearance, EOMI, PERRL, Other (limited fundoscopic exam reveals normal yellow fundus, bright vessels and sharp disc margins without obvious pallor) ENT: Positive for: Pharynx Is (clear) Neck: Positive for: Painless ROM, Supple Cardiovascular/Chest: Positive for: Regular Rate, Rhythm. Negative for: Murmur Respiratory: Positive for: Wheezing (diffuse expiratory wheezing), Respiratory Distress (mild). Negative for: Accessory Muscle Use Gastrointestinal/Abdominal: Positive for: Soft. Negative for: Tenderness Back: Positive for: Normal Inspection. Negative for: Muscle Spasm Extremity: Positive for: Normal ROM. Negative for: Deformity Lymphatic: Negative for: Adenopathy Neurologic/Psych: Positive for: Alert. Negative for: Motor/Sensory Deficits - Laboratory Results Result Diagrams: 11/16/18 16:42 11/16/18 16:42 - ECG O2 Sat by Pulse Oximetry: 95 (RA) Pulse Ox Interpretation: Normal - Radiology X-Ray: Read By Radiologist X-Ray Interpretation: No Acute Disease Medical Decision Making Medical Decision Makin:07 Impression: cough Differential diagnoses include but are not limited to: COPD exacerbation, pneumonia, bronchitis, influenza Initial Plan: --CT Head --BNP --CMP --CBC --CXR --Lactic acid --LDH --Troponin --Urine preg --EKG --Duoneb 9 ml INH --Peak flow pre/post --Solumedrol 125 mg IVP --Tylenol 975 mg PO --Blood cx --Urine cx --UA --Influenza AB 18:[address] FINDINGS: HEMORRHAGE: No intracranial hemorrhage. BRAIN: No mass effect or edema. No atrophy or chronic microvascular ischemic changes. VENTRICLES: Unremarkable. No hydrocephalus. CALVARIUM: Unremarkable. PARANASAL SINUSES: Unremarkable as visualized. No significant inflammatory changes. MASTOID AIR CELLS: Unremarkable as visualized. No inflammatory changes. OTHER FINDINGS: None. IMPRESSION: No acute intracranial abnormalities. No significant findings to account for the clinical presentation. No significant interval change compared to the prior examination(s). Mild hypokalemia, otherwise no significant lab abnormalities. No acute findings on chest xray. Pt reports she is feeling slightly better and is eager to go home. Continues to have wheeze and offered hospitalization for stabilization, but she prefers to leave. Advised urgent followup. Scribe Attestation: Documented by Dimple Sevilla, acting as a scribe for Sharon Rousseau MD Provider Scribe Attestation: All medical record entries made by the Scribe were at my direction and personally dictated by me. I have reviewed the chart and agree that the record accurately reflects my personal performance of the history, physical exam, medical decision making, and the department course for this patient. I have also personally directed, reviewed, and agree with the discharge instructions and disposition. Disposition - Clinical Impression Clinical Impression: Acute bronchitis with chronic obstructive pulmonary disease (COPD) - Disposition Disposition: Routine/Home Disposition Time: 20:00 Condition: IMPROVED Additional Instructions: FOLLOW UP WITH YOUR DOCTOR IN 24-48 HOURS Prescriptions: Albuterol 0.083% [Albuterol Sulfate 3 Ml] 3 ml IH Q4 PRN #50 neb PRN Reason: asthma RX: Azithromycin [Zithromax] 250 mg PO DAILY #6 dose RX: Prednisone 50 mg PO DAILY #4 tablet Promethazine HCl/Codeine [Prometh-Codein 6.25-10 mg/5 ml] 10 ml PO Q6 PRN #120 ml PRN Reason: SEVERE COUGH ONLY Instructions: Acute Bronchitis, Adult (DC), Exacerbation of COPD (DC)
[2018-11-16 16:58] LABS: BASO % 0.3 % (0.0-2.0); EOS # 0.3 K/uL (0.0-0.7); EOS % 3.2 % (0.0-4.0); HEMOGLOBIN 14.1 g/dL (12.0-16.0); LYMPH # 3.2 K/uL (1.0-4.3); LYMPH % 39.9 % (20.0-40.0); MEAN CELL VOLUME 91.7 fl (81.0-99.0); MEAN CORPUSCULAR HEMOGLOBIN 31.1 pg (27.0-31.0); MEAN CORPUSCULAR HGB CONC 33.9 g/dL (33.0-37.0); MEAN PLATELET VOLUME 7.9 fl (7.2-11.7); MONO # 0.5 K/uL (0.0-0.8); MONO % 5.8 % (0.0-10.0); NEUT # 4.1 K/uL (1.8-7.0); NEUT % 50.8 % (50.0-75.0); NRBC % 0.1 % (0.0-0.0); RBC 4.53 Mil/uL (3.80-5.20)
[2018-11-16 17:01] LABS: ALB/GLOB RATIO 1.5 (1.0-2.1); ALBUMIN 4.4 g/dL (3.5-5.0); ALT/SGPT 24 U/L (9-52); AST/SGOT 27 U/L (14-36); BLOOD UREA NITROGEN 15 mg/dl (7-17); CALCIUM 9.4 mg/dL (8.4-10.2); GFR NON-AFRICAN AMERICAN > 60
[2018-11-16] MEDS ORDERED: Albuterol-Ipratrop 3 mg / 0.5 (3 ml) UD ONE (17:04)
[2018-11-16 17:13] LABS: B-TYPE NATRIURETIC PEPTIDE 175 pg/ml (0-450)
[2018-11-16 17:20] LABS: SQUAMOUS EPITHIAL 6 /hpf (0-5); URINE BACTERIA RARE (<OCC); URINE BILIRUBIN NEGATIVE (NEGATIVE); URINE BLOOD NEGATIVE (NEGATIVE); URINE CALCIUM OXALATE CRYSTALS OCC /hpf (<OCC); URINE CLARITY CLOUDY (Clear); URINE COLOR AMBER (YELLOW); URINE GLUCOSE (UA) NEG (NEGATIVE); URINE LEUKOCYTE ESTERASE NEG Leu/uL (Negative); URINE PROTEIN 30 mg/dL (NEGATIVE)
[2018-11-16] MEDS ORDERED: Potassium Chloride 20 mEq ER Tab PO STA (17:54)
--- NOTE | 2018-11-16 18:34 | RAD ---
Date of service: 11/16/2018 HISTORY: cough fever sob COMPARISON: 03/02/2018 TECHNIQUE: Chest PA and lateral FINDINGS: LUNGS: No active pulmonary disease. PLEURA: No significant pleural effusion identified. No pneumothorax apparent. CARDIOVASCULAR: No aortic atherosclerotic calcification present. Normal cardiac size. No pulmonary vascular congestion. OSSEOUS STRUCTURES: No significant abnormalities. VISUALIZED UPPER ABDOMEN: Normal. OTHER FINDINGS: None. IMPRESSION: No active disease. No significant interval change compared to the prior examination(s).
--- NOTE | 2018-11-16 18:40 | CT ---
Date of service: 11/16/2018 PROCEDURE: CT HEAD WITHOUT CONTRAST. HISTORY: blurry vision headache COMPARISON: 05/21/2017. TECHNIQUE: Axial computed tomography images were obtained through the head/brain without intravenous contrast. Supplemental Coronal and Sagittal projections created and reviewed. Radiation dose: Total exam DLP = 716.99 mGy-cm. This CT exam was performed using one or more of the following dose reduction techniques: Automated exposure control, adjustment of the mA and/or kV according to patient size, and/or use of iterative reconstruction technique. FINDINGS: HEMORRHAGE: No intracranial hemorrhage. BRAIN: No mass effect or edema. No atrophy or chronic microvascular ischemic changes. VENTRICLES: Unremarkable. No hydrocephalus. CALVARIUM: Unremarkable. PARANASAL SINUSES: Unremarkable as visualized. No significant inflammatory changes. MASTOID AIR CELLS: Unremarkable as visualized. No inflammatory changes. OTHER FINDINGS: None. IMPRESSION: No acute intracranial abnormalities. No significant findings to account for the clinical presentation. No significant interval change compared to the prior examination(s).
[2018-11-16] MEDS ORDERED: Promethazine/Cod 6.25mg-10mg/5ml Syr UD PO STA (19:16)
[2018-11-16] MEDS ORDERED: Potassium Chloride 20 mEq ER Tab PO ONE (20:11)
[2018-11-16] MEDS ORDERED: Promethazine/Cod 6.25mg-10mg/5ml Syr UD ONE (20:11)
[2018-11-16 20:15] VITALS: BP 139/57; PULSE 93
--- NOTE | 2018-11-17 06:44 | CT ---
Date of service: 11/16/2018 PROCEDURE: CT NECK WITHOUT CONTRAST HISTORY: left neck pain r/o FB COMPARISON: None available. TECHNIQUE: CT of the neck without intravenous contrast. Coronal and sagittal reformats generated. Radiation dose: Total exam DLP = 330.61 mGy-cm. This CT exam was performed using one or more of the following dose reduction techniques: Automated exposure control, adjustment of the mA and/or kV according to patient size, and/or use of iterative reconstruction technique. FINDINGS: NASOPHARYNX: Unremarkable. SUPRAHYOID NECK: Unremarkable oropharynx, oral cavity, parapharyngeal space and retropharyngeal space. INFRAHYOID NECK: Unremarkable larynx, hypopharynx, and supraglottic space. Vocal cords intact. MASS: None. GLANDS: Parotid and submandibular glands unremarkable. Normal size thyroid gland, without nodule. LYMPH NODES: Normal. No lymphadenopathy. CERVICAL SPINE: No fracture or focal lesion. OTHER FINDINGS: Bilateral maxillary sinus disease. IMPRESSION: Unremarkable non-contrast enhanced CT of the neck.
--- NOTE | 2018-11-17 23:02 | CARD ---
APPROVED REPORT Date of service: 11/16/2018 EKG Measurement Heart [id number] <Conclusion> Normal sinus rhythm ST & T wave abnormality, consider inferolateral ischemia Abnormal ECG
[2018-11-17 23:37] VITALS: O2SAT 95
== END 2018-11-16 21:47 | disposition home or self-care (01) ==
LOC: H.ER 15:19
DX: J20.9 Acute bronchitis, unspecified (principal); J44.0 Chronic obstructive pulmonary disease with (acute) lower respiratory infection; Z85.828 Personal history of other malignant neoplasm of skin; F17.200 Nicotine dependence, unspecified, uncomplicated; M06.9 Rheumatoid arthritis, unspecified; Z79.899 Other long term (current) drug therapy
CPT/HCPCS: 70450; 70490; 71046; 80053; 81003; 81025; 83605; 83615; 83880; 84484; 85025; 87040; 87086; 87804; 93005; 94640; 96374; 99284; J2930

== ENCOUNTER 2019-02-11 15:20 | Emergency (ER) | payer OTHER ==
[2019-02-11 15:20] VITALS: BMI 24.7
[2019-02-11 15:28] VITALS: TEMP 98.2; O2SAT 97
--- NOTE | 2019-02-11 16:29 | ED PDOC ---
HPI: Abdomen Time Seen by Provider: 02/11/19 15:50 Chief Complaint (Nursing): Abdominal Pain Chief Complaint (Provider): Flank Pain History Per: Patient History/Exam Limitations: no limitations Onset/Duration Of Symptoms: Hrs Outside of [place] travel?: No Current Symptoms Are (Timing): Still Present Location Of Pain/Discomfort: RUQ, Other (Right Flank) Exacerbating Factors: Movement Additional Complaint(s): 48 year old female presents to the ED complaining of right-sided flank pain with sudden onset at 9:00pm last night. She reports pain is radiating into right upper abdomen. Pain is constant and worsens with movement. Patient denies taking any pain medication at home [employer]. She notes when pain is severe, she feels slightly short of breath. Otherwise patient denies diarrhea, urinary problems, fevers, chills, vomiting, chest pain, or dizziness. Patient admits to a history of back problems in the past, and usually takes Zanaflex and Tylenol #3 for chronic back pain. Past Medical History Reviewed: Historical Data, Nursing Documentation, Vital Signs Vital Signs: Last Vital Signs Temp 98.2 F 02/11/19 15:25 Pulse 97 H 02/11/19 15:25 Resp 20 02/11/19 15:25 BP 118/82 02/11/19 15:25 Pulse Ox 97 02/11/19 15:25 - Medical History PMH: Anxiety, Arthritis (treats with pain management), Asthma, Back Problems, COPD, HIV, HTN, Malignancy (basal cell carcinoma), Migraine, Rheumatoid Arthritis Denies: Chronic Kidney Disease - Surgical History Surgical History: - Family History Family History: States: Unknown Family Hx - Home Medications Home Medications: Ambulatory Orders Medication Instructions Recorded Albuterol HFA [Ventolin HFA 90 2 puff IH [id number] PRN 03/11/15 mcg/actuation (8 g)] Albuterol HFA [Ventolin HFA 90 2 puff IH [id number] PRN #30 puff 03/11/15 mcg/actuation (8 g)] Azithromycin [Zithromax Z-Marquez] 250 mg PO DAILY #1 tab 03/11/15 Budesonide/Formoterol Fumarate 1 dose INH PRN PRN 03/11/15 [Symbicort] Emtricita/rilpivir/tenofovir 1 tab PO DAILY 03/11/15 [Complera 200 mg-25 mg-300 mg] Levalbuterol Hydrochloride 1 dose XX PRN PRN 03/11/15 [Xopenex] Methylprednisolone [Medrol Dose 4 mg PO DAILY #21 mg 03/11/15 Pack (21 tabs)] Prednisone 3 mg PO DAILY 03/11/15 Clindamycin [Cleocin] 300 mg PO TID #30 cap 10/26/15 Oxycodone HCl/Acetaminophen 1 tab PO Q6 PRN #12 tab 10/26/15 [Percocet 325 mg-5 mg] Acetaminophen with Codeine 1 tab PO Q4 PRN #15 tab 01/26/16 [Acetaminophen and Codeine Phosphate 300 mg-30] Albuterol HFA [Ventolin HFA 90 1 - 2 puff IH Q4 PRN #1 inhaler 01/26/16 mcg/actuation (8 g)] Azithromycin [Zithromax] 250 mg PO DAILY #6 tab 01/26/16 Prednisone 50 mg PO DAILY #4 tab 01/26/16 Emtricita/Rilpivirine/Tenof Df 1 each PO DAILY 05/05/16 [Complera Tablet] Prednisone 50 mg PO DAILY #5 tablet 09/05/16 Ibuprofen [Motrin] 600 mg PO TID 7 Days tab 12/29/16 Ibuprofen [Motrin] 600 mg PO TID 7 Days tab 12/29/16 Cyclobenzaprine [Flexeril] 5 mg PO TID #15 tab 05/21/17 Naproxen 500 mg PO BID #20 tab 05/21/17 Cyclobenzaprine [Cyclobenzaprine 10 mg PO Q8 PRN #10 tab 03/02/18 HCl] Meloxicam [Mobic] 7.5 mg PO DAILY PRN #30 tab 03/02/18 Cyclobenzaprine [Cyclobenzaprine 10 mg PO TID PRN #15 tab 04/10/18 HCl] Naproxen [Naprosyn] 500 mg PO BID PRN #15 tablet 04/10/18 Esomeprazole Magnesium [Nexium] 20 mg PO QAM #14 ecc 10/16/18 Ondansetron ODT [Zofran ODT] 4 mg PO Q6 PRN #8 odt 10/16/18 Albuterol 0.083% [Albuterol 3 ml IH Q4 PRN #50 neb 11/16/18 Sulfate 3 Ml] Azithromycin [Zithromax] 250 mg PO DAILY #6 dose 11/16/18 Prednisone 50 mg PO DAILY #4 tablet 11/16/18 Promethazine HCl/Codeine 10 ml PO Q6 PRN #120 ml 11/16/18 [Prometh-Codein 6.25-10 mg/5 ml] Ibuprofen [Motrin] 600 mg PO Q6H PRN #20 tab 02/11/19 - Allergies Allergies/Adverse Reactions: Allergies Allergy/AdvReac Type Severity Reaction Status Date / Time FISH Allergy SWELLING Verified 02/11/19 15:25 lemon Allergy RASH Verified 02/11/19 15:25 onion Allergy SWELLING Verified 02/11/19 15:25 Review of Systems ROS Statement: Except As Marked, All Systems Reviewed And Found Negative Constitutional: Negative for: Fever, Chills Eyes: Negative for: Vision Change Cardiovascular: Negative for: Chest Pain Respiratory: Positive for: Shortness of Breath (when pain intensifies). Negative for: Cough, Wheezing Gastrointestinal: Positive for: Abdominal Pain (RUQ). Negative for: Vomiting, Diarrhea Genitourinary Female: Negative for: Dysuria, Frequency, Incontinence, Hematuria Musculoskeletal: Positive for: Back Pain (right flank) Skin: Negative for: Rash Neurological: Negative for: Weakness, Numbness, Dizziness Physical Exam - Reviewed Nursing Documentation Reviewed: Yes Vital Signs Reviewed: Yes - Physical Exam Appears: Positive for: Uncomfortable Head Exam: Positive for: ATRAUMATIC, NORMOCEPHALIC Skin: Positive for: Normal Color, Warm, DRY Eye Exam: Positive for: EOMI, Normal appearance, PERRL Neck: Positive for: Normal, Supple Cardiovascular/Chest: Positive for: Regular Rate, Rhythm. Negative for: Murmur Respiratory: Positive for: Normal Breath Sounds. Negative for: Accessory Muscle Use, Respiratory Distress Pulses-Radial (L): 2+ Pulses-Radial (R): 2+ Gastrointestinal/Abdominal: Positive for: Soft, Tenderness (to the RUQ). Negative for: Guarding, Rebound Back: Positive for: R CVA Tenderness, Other (No skin changes or rash). Negative for: Vertebral Tenderness Extremity: Positive for: Normal ROM. Negative for: Pedal Edema, Deformity Neurological/Psych: Positive for: Alert, Oriented (x 3). Negative for: Motor/Sensory Deficits - Laboratory Results Result Diagrams: 02/11/19 16:52 02/11/19 16:52 - ECG O2 Sat by Pulse Oximetry: 97 (RA) Pulse Ox Interpretation: Normal Medical Decision Making Medical Decision Making: Initial Impression: Right flank pain, RUQ pain Differential diagnosis includes but is not limited to: Biliary disease, renal colic, nephrolithiasis, neuropathic pain, or early stage shingles Initial Plan: - CMP - Lipase - Trop - CBC - EKG - CT abdomen/pelvis - US Abdomen [RUQ] - 30 mg IV Toradol given for pain control Scribe Attestation: Documented by Darlene Perry, acting as a scribe for Tram Garcia MD. Provider Scribe Attestation: All medical record entries made by the Scribe were at my direction and personally dictated by me. I have reviewed the chart and agree that the record accurately reflects my personal performance of the history, physical exam, medical decision making, and the department course for this patient. I have also personally directed, reviewed, and agree with the discharge instructions and disposition. * Time: 1700 -- Patient endorsed to Dr. Foster, pending CT, US, revaluation and final ER disposition. Scribe Attestation: Documented by Miriam Melgar, acting as a scribe Leona Garcia MD. Provider Scribe Attestation: All medical record entries made by the Scribe were at my direction and personally dictated by me. I have reviewed the chart and agree that the record accurately reflects my personal performance of the history, physical exam, medical decision making, and the department course for this patient. I have also personally directed, reviewed, and agree with the discharge instructions and disposition. Disposition - Clinical Impression Clinical Impression: Abdominal pain in female - Patient ED Disposition Is Patient to be Admitted: Transfer of Care Doctor Will See Patient In The: Office - Disposition Disposition: Transfer of Care Disposition Time: 17:00 Condition: STABLE Additional Instructions: FOLLOW-UP WITH PMD WITHIN 2 DAYS FOR REEVALUATION. Prescriptions: Ibuprofen [Motrin] 600 mg PO Q6H PRN #20 tab PRN Reason: Pain, Moderate (4-7) Instructions: Acute Abdomen (Belly Pain) Forms: [employer] ([place]) Patient Signed Over To: Joyce Foster Handoff Comments: pending, CT, US, re-evaluation and final ER disposition.
[2019-02-11 16:58] LABS: BASO # 0.1 K/uL (0.0-0.2); BASO % 1.1 % (0.0-2.0); EOS # 0.2 K/uL (0.0-0.7); EOS % 2.5 % (0.0-4.0); HEMOGLOBIN 14.2 g/dL (12.0-16.0); LYMPH # 3.1 K/uL (1.0-4.3); LYMPH % 36.4 % (20.0-40.0); MEAN CELL VOLUME 92.8 fl (81.0-99.0); MEAN CORPUSCULAR HEMOGLOBIN 31.2 pg (27.0-31.0); MEAN CORPUSCULAR HGB CONC 33.6 g/dL (33.0-37.0); MEAN PLATELET VOLUME 7.8 fl (7.2-11.7); MONO # 0.5 K/uL (0.0-0.8); MONO % 5.4 % (0.0-10.0); NEUT # 4.7 K/uL (1.8-7.0); NEUT % 54.6 % (50.0-75.0); RBC 4.56 Mil/uL (3.80-5.20); RED CELL DISTRIBUTION WIDTH 13.9 % (11.5-14.5); WHITE BLOOD COUNT 8.5 K/uL (4.8-10.8)
[2019-02-11 17:11] LABS: ALB/GLOB RATIO 1.5 (1.0-2.1); ALBUMIN 4.5 g/dL (3.5-5.0); ALT/SGPT 28 U/L (9-52); AST/SGOT 32 U/L (14-36); BLOOD UREA NITROGEN 10 mg/dl (7-17); CALCIUM 9.5 mg/dL (8.4-10.2); GFR NON-AFRICAN AMERICAN > 60; LIPASE 77 U/L (23-300)
[2019-02-11] MEDS ORDERED: Potassium Chloride 20 mEq ER Tab PO STA (17:17)
--- NOTE | 2019-02-11 17:18 | ED PDOC ---
- Laboratory Results Result Diagrams: 02/11/19 16:52 02/11/19 16:52 Lab Results: Total Bilirubin 0.5 mg/dl (0.2-1.3) 02/11/19 16:52 AST 32 U/L (14-36) 02/11/19 16:52 ALT 28 U/L (9-52) 02/11/19 16:52 Alkaline Phosphatase 108 U/L (38-126) 02/11/19 16:52 Total Protein 7.6 G/DL (6.3-8.2) 02/11/19 16:52 Albumin 4.5 g/dL (3.5-5.0) 02/11/19 16:52 Globulin 3.1 gm/dL (2.2-3.9) 02/11/19 16:52 Albumin/Globulin Ratio 1.5 (1.0-2.1) 02/11/19 16:52 Lipase 77 U/L (23-300) 02/11/19 16:52 - ECG O2 Sat by Pulse Oximetry: 97 (RA) Medical Decision Making Medical Decision Making: Accession No. : [id number] Patient Name / ID : TOMA FUENTES / [id number] Exam Date : 02/11/2019 17:18:11 ( Approved ) Study Comment : Sex / Age : F / 48Y Creator : Britton Gtz MD Dictator : Britton Gtz MD Remarketing Rep : Hardboard Panel Printer : Britton Gtz MD Approver2 : Report Date : 02/11/2019 18:11:40 My Comment : Date of service: 02/11/2019 HISTORY: ruq pain COMPARISON: 10/16/2018. Abdominal ultrasound. TECHNIQUE: Sonographic evaluation of the right upper quadrant of the abdomen. FINDINGS: LIVER: Measures 16.4 cm in length. Patent portal vein. Portal venous flow: Hepatopetal. Unremarkable echogenicity of the liver parenchyma. No mass. No intrahepatic bile duct dilatation. GALLBLADDER: Contracted gallbladder. No visible gallstones, sludge or other pathologic findings. COMMON BILE DUCT: Measures 3.6 mm. No stones. No dilatation. PANCREAS: Unremarkable as visualized. No mass. No ductal dilatation. RIGHT KIDNEY: Measures 4.1 x 10.1 cm in length. Normal echogenicity. No calculus, mass, or hydronephrosis. AORTA: No aneurysmal dilatation. IVC: Unremarkable. OTHER FINDINGS: None . IMPRESSION: No significant or acute findings to account for/ related to the clinical presentation. Additional benign and/or incidental findings described above. No significant interval change compared to the prior examination(s). Accession No. : [id number] Patient Name / ID : TOMA FUENTES / [id number] Exam Date : 02/11/2019 17:37:19 ( Approved ) Study Comment : Sex / Age : F / 48Y Creator : Britton Gtz MD Dictator : Britton Gtz MD Remarketing Rep : Hardboard Panel Printer : Britton Gtz MD Approver2 : Report Date : 02/11/2019 18:20:55 My Comment : Date of service: 02/11/2019 PROCEDURE: CT Abdomen and Pelvis with contrast HISTORY: Right upper quadrant and flank pain. COMPARISON: February 11, 2019. Abdominal ultrasound. 10/16/2018 abdominal ultrasound. TECHNIQUE: Intravenous contrast dose: 90 cc Visipaque 320. Radiation dose: Total exam DLP = 467.10 mGy-cm. This CT exam was performed using one or more of the following dose reduction techniques: Automated exposure control, adjustment of the mA and/or kV according to patient size, and/or use of iterative reconstruction technique. FINDINGS: LOWER THORAX: Unremarkable. LIVER: Unremarkable. No gross lesion or ductal dilatation. GALLBLADDER AND BILE DUCTS: Contracted gallbladder. PANCREAS: Unremarkable. No gross lesion or ductal dilatation. SPLEEN: Unremarkable. ADRENALS: Unremarkable. No mass. KIDNEYS AND URETERS: Unremarkable. No hydronephrosis. No solid mass. VASCULATURE: Unremarkable. No aortic aneurysm. No atherosclerotic calcification or mural plaque present. BOWEL: Segmental thickening of the wall of proximal descending colon. Significance, etiology uncertain. This may represent nothing more than spasm. Focal inflammatory change/colitis should also be considered. Diverticulosis primarily affecting the sigmoid colon and to lesser extent the descending colon. APPENDIX: A normal appendix is visualized in it's entirety. PERITONEUM: Unremarkable. No free fluid. No free air. LYMPH NODES: Unremarkable. No enlarged lymph nodes. BLADDER: Unremarkable. REPRODUCTIVE: Unremarkable. BONES: No acute fracture. OTHER FINDINGS: None. IMPRESSION: Focal narrowing of the proximal descending colon, short segment. Differential considerations include infectious/inflammatory etiologies. This is less likely represent luminal narrowing related to neoplasm. Please refer to sagittal series 602/image 124. The findings are also best seen on coronal series 601/image 46. Additional benign and/or incidental findings described above. 18:35 Results discussed with patient, states she has yet to schedule endoscopy and colonscopy for which she was referred, has stress test tomorrow. Pt reexamined, states pain better, no TTP abdomen, no rash, no skin lesions. Will follow-up with PMD. Pt given copy of labs, CT and ultrasound results. Disposition - Clinical Impression Clinical Impression: Abdominal pain in female - POA Present On Arrival: None - Disposition Disposition: Routine/Home Disposition Time: 18:57 Condition: STABLE Additional Instructions: FOLLOW-UP WITH PMD WITHIN 2 DAYS FOR REEVALUATION. Prescriptions: Ibuprofen [Motrin] 600 mg PO Q6H PRN #20 tab PRN Reason: Pain, Moderate (4-7) Instructions: Acute Abdomen (Belly Pain) Forms: [employer] (Lao) Addendum Addendum: 02/11/19 17:00 Pt signed out by Dr. Garcia pending CT and ultrasoudn.
[2019-02-11] MEDS ORDERED: Sodium Chloride 0.9% 50 ML IV ONE (17:25)
[2019-02-11] MEDS ORDERED: Iohexol 300 100 ML IJ ONE (17:25)
--- NOTE | 2019-02-11 18:14 | US ---
Date of service: 02/11/2019 HISTORY: ruq pain COMPARISON: 10/16/2018. Abdominal ultrasound. TECHNIQUE: Sonographic evaluation of the right upper quadrant of the abdomen. FINDINGS: LIVER: Measures 16.4 cm in length. Patent portal vein. Portal venous flow: Hepatopetal. Unremarkable echogenicity of the liver parenchyma. No mass. No intrahepatic bile duct dilatation. GALLBLADDER: Contracted gallbladder. No visible gallstones, sludge or other pathologic findings. COMMON BILE DUCT: Measures 3.6 mm. No stones. No dilatation. PANCREAS: Unremarkable as visualized. No mass. No ductal dilatation. RIGHT KIDNEY: Measures 4.1 x 10.1 cm in length. Normal echogenicity. No calculus, mass, or hydronephrosis. AORTA: No aneurysmal dilatation. IVC: Unremarkable. OTHER FINDINGS: None . IMPRESSION: No significant or acute findings to account for/ related to the clinical presentation. Additional benign and/or incidental findings described above. No significant interval change compared to the prior examination(s).
--- NOTE | 2019-02-11 18:24 | CT ---
Date of service: 02/11/2019 PROCEDURE: CT Abdomen and Pelvis with contrast HISTORY: Right upper quadrant and flank pain. COMPARISON: February 11, 2019. Abdominal ultrasound. 10/16/2018 abdominal ultrasound. TECHNIQUE: Intravenous contrast dose: 90 cc Visipaque 320. Radiation dose: Total exam DLP = 467.10 mGy-cm. This CT exam was performed using one or more of the following dose reduction techniques: Automated exposure control, adjustment of the mA and/or kV according to patient size, and/or use of iterative reconstruction technique. FINDINGS: LOWER THORAX: Unremarkable. LIVER: Unremarkable. No gross lesion or ductal dilatation. GALLBLADDER AND BILE DUCTS: Contracted gallbladder. PANCREAS: Unremarkable. No gross lesion or ductal dilatation. SPLEEN: Unremarkable. ADRENALS: Unremarkable. No mass. KIDNEYS AND URETERS: Unremarkable. No hydronephrosis. No solid mass. VASCULATURE: Unremarkable. No aortic aneurysm. No atherosclerotic calcification or mural plaque present. BOWEL: Segmental thickening of the wall of proximal descending colon. Significance, etiology uncertain. This may represent nothing more than spasm. Focal inflammatory change/colitis should also be considered. Diverticulosis primarily affecting the sigmoid colon and to lesser extent the descending colon. APPENDIX: A normal appendix is visualized in it's entirety. PERITONEUM: Unremarkable. No free fluid. No free air. LYMPH NODES: Unremarkable. No enlarged lymph nodes. BLADDER: Unremarkable. REPRODUCTIVE: Unremarkable. BONES: No acute fracture. OTHER FINDINGS: None. IMPRESSION: Focal narrowing of the proximal descending colon, short segment. Differential considerations include infectious/inflammatory etiologies. This is less likely represent luminal narrowing related to neoplasm. Please refer to sagittal series 602/image 124. The findings are also best seen on coronal series 601/image 46. Additional benign and/or incidental findings described above.
[2019-02-11] MEDS ORDERED: Potassium Chloride 20 mEq ER Tab PO ONE (18:32)
[2019-02-11 19:23] VITALS: BP 110/80; PULSE 89; RESP 18
--- NOTE | 2019-02-12 11:34 | CARD ---
APPROVED REPORT Date of service: 02/11/2019 EKG Measurement Heart [id number] <Conclusion> Normal sinus rhythm with sinus arrhythmia Nonspecific ST and T wave abnormality Abnormal ECG
== END 2019-02-11 19:12 | disposition home or self-care (01) ==
LOC: H.ER 15:20
DX: R10.11 Right upper quadrant pain (principal)
CPT/HCPCS: 74177; 76705; 80053; 81025; 83690; 84484; 85025; 93005; 96374; 99284; J1885; Q9967

== ENCOUNTER 2019-02-14 14:31 | Emergency (ER) | payer OTHER ==
[2019-02-14 14:32] VITALS: BMI 24.7
[2019-02-14] MEDS ORDERED: Lidocaine 5% Patch TD STA (15:11)
[2019-02-14] MEDS ORDERED: Morphine 4 MG/ML VIAL ONE (15:13)
[2019-02-14] MEDS ORDERED: Lidocaine 5% Patch TD ONE (15:13)
[2019-02-14] MEDS ORDERED: Morphine 4 MG/ML VIAL IVP STA (16:00)
--- NOTE | 2019-02-14 16:24 | ED PDOC ---
HPI: Back Time Seen by Provider: 02/14/19 16:07 Chief Complaint (Nursing): Back Pain Chief Complaint (Provider): right flank and right upper back History Per: Patient History/Exam Limitations: no limitations Onset/Duration Of Symptoms: Days (x5), Sudden Onset Current Symptoms Are (Timing): Still Present Quality Of Discomfort: Sharp Exacerbating Factor(s): Movement Additional Complaint(s): Nikki Cox is a 48 year old female, with a past medical history of HIV, HTN, asthma, COPD and rheumatoid arthritis, who presents to the emergency department complaining of right flank pain/right upper back pain that started x5 days ago. Patient states pain is exacerbated when she coughs, takes deep breaths, blows her nose or moves a certain way. Patient was seen here x4 days ago and underwent abdomen/pelvis CT scan as well as US, both of which did not demonstrate any findings to explain her symptoms. Patient was prescribed Ibuprofen, however pain continued and became more severe despite pain medication. She denies any fever, chills, nausea, vomit, increase in baseline cough or phlegm, leg swelling, urinary symptoms, trauma or injuries. No further medical complaints. PMD: Erik Patel. [facility] up at [facility] in [place]. Past Medical History Reviewed: Historical Data, Nursing Documentation, Vital Signs Vital Signs: Last Vital Signs Temp 98.7 F 02/14/19 14:40 Pulse 94 H 02/14/19 14:40 Resp 16 02/14/19 14:40 BP 128/94 H 02/14/19 14:40 Pulse Ox 97 02/14/19 14:40 - Medical History PMH: Anxiety, Arthritis (treats with pain management), Asthma, Back Problems, COPD, HIV, HTN, Malignancy (basal cell carcinoma), Migraine, Rheumatoid Arthritis Denies: Chronic Kidney Disease - Surgical History Surgical History: - Family History Family History: States: Unknown Family Hx - Social History Current smoker - smoking cessation education provided: Yes (heavy smoker >10 cigarettes daily) Alcohol: Social Drugs: Denies - Home Medications Home Medications: Ambulatory Orders Medication Instructions Recorded Albuterol HFA [Ventolin HFA 90 2 puff IH [id number] PRN 03/11/15 mcg/actuation (8 g)] Albuterol HFA [Ventolin HFA 90 2 puff IH [id number] PRN #30 puff 03/11/15 mcg/actuation (8 g)] Azithromycin [Zithromax Z-Marquez] 250 mg PO DAILY #1 tab 03/11/15 Budesonide/Formoterol Fumarate 1 dose INH PRN PRN 03/11/15 [Symbicort] Emtricita/rilpivir/tenofovir 1 tab PO DAILY 03/11/15 [Complera 200 mg-25 mg-300 mg] Levalbuterol Hydrochloride 1 dose XX PRN PRN 03/11/15 [Xopenex] Methylprednisolone [Medrol Dose 4 mg PO DAILY #21 mg 03/11/15 Pack (21 tabs)] Prednisone 3 mg PO DAILY 03/11/15 Clindamycin [Cleocin] 300 mg PO TID #30 cap 10/26/15 Oxycodone HCl/Acetaminophen 1 tab PO Q6 PRN #12 tab 10/26/15 [Percocet 325 mg-5 mg] Acetaminophen with Codeine 1 tab PO Q4 PRN #15 tab 01/26/16 [Acetaminophen and Codeine Phosphate 300 mg-30] Albuterol HFA [Ventolin HFA 90 1 - 2 puff IH Q4 PRN #1 inhaler 01/26/16 mcg/actuation (8 g)] Azithromycin [Zithromax] 250 mg PO DAILY #6 tab 01/26/16 Prednisone 50 mg PO DAILY #4 tab 01/26/16 Emtricita/Rilpivirine/Tenof Df 1 each PO DAILY 05/05/16 [Complera Tablet] Prednisone 50 mg PO DAILY #5 tablet 09/05/16 Ibuprofen [Motrin] 600 mg PO TID 7 Days tab 12/29/16 Ibuprofen [Motrin] 600 mg PO TID 7 Days tab 12/29/16 Cyclobenzaprine [Flexeril] 5 mg PO TID #15 tab 05/21/17 Naproxen 500 mg PO BID #20 tab 05/21/17 Cyclobenzaprine [Cyclobenzaprine 10 mg PO Q8 PRN #10 tab 03/02/18 HCl] Meloxicam [Mobic] 7.5 mg PO DAILY PRN #30 tab 03/02/18 Cyclobenzaprine [Cyclobenzaprine 10 mg PO TID PRN #15 tab 04/10/18 HCl] Naproxen [Naprosyn] 500 mg PO BID PRN #15 tablet 04/10/18 Esomeprazole Magnesium [Nexium] 20 mg PO QAM #14 ecc 10/16/18 Ondansetron ODT [Zofran ODT] 4 mg PO Q6 PRN #8 odt 10/16/18 Albuterol 0.083% [Albuterol 3 ml IH Q4 PRN #50 neb 11/16/18 Sulfate 3 Ml] Azithromycin [Zithromax] 250 mg PO DAILY #6 dose 11/16/18 Prednisone 50 mg PO DAILY #4 tablet 11/16/18 Promethazine HCl/Codeine 10 ml PO Q6 PRN #120 ml 11/16/18 [Prometh-Codein 6.25-10 mg/5 ml] Ibuprofen [Motrin] 600 mg PO Q6H PRN #20 tab 02/11/19 Cyclobenzaprine [Flexeril] 5 mg PO Q8 PRN #15 tab 02/14/19 Lidocaine 5% [Lidoderm] 1 ea TD DAILY PRN #30 patch 02/14/19 - Allergies Allergies/Adverse Reactions: Allergies Allergy/AdvReac Type Severity Reaction Status Date / Time FISH Allergy SWELLING Verified 02/11/19 15:25 lemon Allergy RASH Verified 02/11/19 15:25 onion Allergy SWELLING Verified 02/11/19 15:25 Review of Systems ROS Statement: Except As Marked, All Systems Reviewed And Found Negative Constitutional: Negative for: Fever, Chills Respiratory: Positive for: Cough, Sputum Gastrointestinal: Negative for: Nausea, Vomiting Musculoskeletal: Positive for: Back Pain (right upper), Other (right flank pain) Physical Exam - Reviewed Nursing Documentation Reviewed: Yes Vital Signs Reviewed: Yes - Physical Exam Appears: Positive for: Uncomfortable, In Acute Distress (painful) Head Exam: Positive for: ATRAUMATIC, NORMAL INSPECTION, NORMOCEPHALIC Skin: Positive for: Normal Color, Warm, Dry Eye Exam: Positive for: Normal appearance, EOMI, PERRL Neck: Positive for: Normal, Painless ROM Cardiovascular/Chest: Positive for: Regular Rate, Rhythm. Negative for: Chest Non Tender (Reproducible tenderness at the right posterior lateral chest wall at the level of bra-line but no deformity or step-off), Murmur Respiratory: Positive for: Rhonchi (weak rhonchi bilaterally). Negative for: Wheezing Gastrointestinal/Abdominal: Positive for: Normal Exam, Soft. Negative for: Tenderness, Mass, Guarding, Rebound Back: Positive for: Normal Inspection. Negative for: L CVA Tenderness, R CVA Tenderness, Vertebral Tenderness Extremity: Positive for: Normal ROM (upper and lower extremities). Negative for: Deformity, Swelling Neurological/Psych: Positive for: Awake, Alert, Normal Tone, Oriented. Negative for: Motor/Sensory Deficits - Laboratory Results Result Diagrams: 02/14/19 15:30 02/14/19 15:30 - ECG O2 Sat by Pulse Oximetry: 97 (RA) Pulse Ox Interpretation: Normal Medical Decision Making Medical Decision Making: Time: 16:07 Initial Impression: Pleuritic chest pain. Differential diagnosis includes but not limited to costochondritis, rib strain or fracture, PE, pneumonia, pneumothorax Initial Plan: --Type and screen --EKG --CMP --Drug screen, urine --Urine --Urine dipstick --CBC w/ differential --D Dimer --PTT --PT --Flexeril 10mg PO --Lidocaine patch 1 ea --Morphine 4mg IVP --Toradol 15 mg IVP --Ribs right & PA chest [RAD] --Reevaluation -EKG: Normal Sinus Rhythm at 89 bpm, normal QRS and normal ST segments. 16:29 Ribs right X-Ray FINDINGS: RIGHT RIBS: No acute rib fracture or focal lesion visualized. There is a deformity and callus in the posterolateral 8th rib. LUNGS: The lungs are well inflated and clear. PLEURA: No pneumothorax or pleural fluid. CARDIOVASCULAR: Normal cardiac size. No pulmonary vascular congestion. No aortic atherosclerotic calcification present OTHER FINDINGS: None. IMPRESSION: No acute rib fracture. No acute findings. Deformity in the right posterolateral 8th rib with callus probably subacute healing fracture. Clear lungs. DW pt findings. Pt continues to deny trauma. Recent CT from 02/06 does not demonstrate rib fracture. Advised rest and will rx as rib fracture. Advised f/u with Dr Cox for appropriate pain management for symptoms. Scribe Attestation: Documented by Jayce Pacheco, acting as a scribe Frantz Rousseau MD Provider Scribe Attestation: All medical record entries made by the Scribe were at my direction and personally dictated by me. I have reviewed the chart and agree that the record accurately reflects my personal performance of the history, physical exam, medical decision making, and the department course for this patient. I have also personally directed, reviewed, and agree with the discharge instructions and disposition. Disposition - Clinical Impression Clinical Impression: Rib fracture Counseled Patient/Family Regarding: Studies Performed, Diagnosis, Need For Followup, Rx Given - Disposition Referrals: Alexander Cox MD [Medical Doctor] - Erik Patel MD [Staff Provider] - [facility] [Outside] Disposition: Routine/Home Disposition Time: 17:15 Condition: IMPROVED Additional Instructions: CALL DR COX IMMEDIATELY FOR SCHEDULE URGENT APPOINTMENT TO REVIEW YOUR PAIN MEDICATION NEEDS NOW THAT YOU HAVE A FRACTURE. REST AND AVOID ANY HEAVY LIFTING OR HEAVY EXERTION. ALSO FOLLOWUP WITH YOUR DOCTOR OR [facility] FOR REEVALUATION Prescriptions: Cyclobenzaprine [Flexeril] 5 mg PO Q8 PRN #15 tab PRN Reason: muscle spasm Lidocaine 5% [Lidoderm] 1 ea TD DAILY PRN #30 patch PRN Reason: PAIN Instructions: Rib Fracture (DC) Forms: [facility] ([employer])
[2019-02-14 16:26] LABS: BASO # 0.1 K/uL (0.0-0.2); BASO % 0.8 % (0.0-2.0); EOS # 0.2 K/uL (0.0-0.7); EOS % 2.5 % (0.0-4.0); HEMOGLOBIN 14.2 g/dL (12.0-16.0); LYMPH # 2.5 K/uL (1.0-4.3); LYMPH % 37.4 % (20.0-40.0); MEAN CELL VOLUME 91.8 fl (81.0-99.0); MEAN CORPUSCULAR HEMOGLOBIN 30.8 pg (27.0-31.0); MEAN CORPUSCULAR HGB CONC 33.6 g/dL (33.0-37.0); MEAN PLATELET VOLUME 8.1 fl (7.2-11.7); MONO # 0.4 K/uL (0.0-0.8); MONO % 5.9 % (0.0-10.0); NEUT # 3.6 K/uL (1.8-7.0); NEUT % 53.4 % (50.0-75.0); NRBC % 0.1 % (0.0-0.0); RBC 4.61 Mil/uL (3.80-5.20); RED CELL DISTRIBUTION WIDTH 13.8 % (11.5-14.5); WHITE BLOOD COUNT 6.7 K/uL (4.8-10.8)
--- NOTE | 2019-02-14 16:32 | RAD ---
Date of service: 02/14/2019 PROCEDURE: Radiographs of the Chest and Right Ribs. HISTORY: severe RIGHT sided posterolateral pain COMPARISON: 11/16/2018. TECHNIQUE: Frontal radiograph of the chest and multiple oblique radiographs of the right ribs were obtained. 4 views obtained. FINDINGS: RIGHT RIBS: No acute rib fracture or focal lesion visualized. There is a deformity and callus in the posterolateral 8th rib. LUNGS: The lungs are well inflated and clear. PLEURA: No pneumothorax or pleural fluid. CARDIOVASCULAR: Normal cardiac size. No pulmonary vascular congestion. No aortic atherosclerotic calcification present OTHER FINDINGS: None. IMPRESSION: No acute rib fracture. No acute findings. Deformity in the right posterolateral 8th rib with callus probably subacute healing fracture. Clear lungs.
[2019-02-14 16:36] LABS: INR 0.9; PROTHROMBIN TIME 10.7 Seconds (9.8-13.1)
[2019-02-14 16:39] LABS: PARTIAL THROMBOPLASTIN TIME 33.6 Seconds (25.6-37.1)
[2019-02-14 17:01] LABS: ALB/GLOB RATIO 1.6 (1.0-2.1); ALBUMIN 4.6 g/dL (3.5-5.0); ALT/SGPT 33 U/L (9-52); AST/SGOT 31 U/L (14-36); BLOOD UREA NITROGEN 10 mg/dl (7-17); CALCIUM 9.4 mg/dL (8.4-10.2); GFR NON-AFRICAN AMERICAN > 60
[2019-02-14 17:01] LABS: BARBITURATES, UR NEGATIVE (NEGATIVE); BENZODIAZEPINES, UR NEGATIVE (NEGATIVE); OPIATES, UR NEGATIVE (NEGATIVE); PHENCYCLIDINE, UR NEGATIVE (NEGATIVE)
[2019-02-14 17:29] VITALS: BP 126/70; PULSE 73; RESP 18; TEMP 98; O2SAT 99
[2019-02-14 19:03] LABS: D DIMER < 200 ng/mlDDU (0-230)
--- NOTE | 2019-02-15 09:20 | CARD ---
APPROVED REPORT Date of service: 02/14/2019 EKG Measurement Heart [id number] <Conclusion> Normal sinus rhythm Nonspecific ST abnormality Abnormal ECG
== END 2019-02-14 17:28 | disposition home or self-care (01) ==
LOC: H.ER 14:31
DX: S22.31XA Fracture of one rib, right side, initial encounter for closed fracture (principal); X58.XXXA Exposure to other specified factors, initial encounter; Y92.89 Other specified places as the place of occurrence of the external cause; R10.9 Unspecified abdominal pain; B20 Human immunodeficiency virus [HIV] disease; J44.0 Chronic obstructive pulmonary disease with (acute) lower respiratory infection; Z85.828 Personal history of other malignant neoplasm of skin
CPT/HCPCS: 71101; 80053; 80324; 80345; 80346; 80349; 80353; 80358; 80361; 81025; 83992; 85025; 85378; 85610; 85730; 86850; 86900; 93005; 96374; 96375; 99283; J1885; J2270